=== PATIENT | female | born 1995 | race Caucasian/White ===

== ENCOUNTER 2021-09-11 09:37 | Emergency (ER) | payer OTHER, SELFPAY ==
[2021-09-11 10:07] VITALS: BP 125/85; PULSE 115; RESP 14; TEMP 37.2; O2SAT 97; BMI 45.1
[2021-09-11 10:23] LABS: UTC Strep Screen (Rapid) Negative (Negative)
[2021-09-11 10:24] LABS: UTC Pregnancy Test, Urine Negative (Negative)
--- NOTE | 2021-09-11 10:34 | HMH.EDUTC ---
[facility] [place] Disposition Clinical Impression: Oral thrush Otitis media Qualifiers: Otitis media type: unspecified Laterality: right Qualified Code(s): H66.91 - Otitis media, unspecified, right ear Sinusitis Qualifiers: Sinusitis location: unspecified location Chronicity: unspecified Qualified Code(s): J32.9 - Chronic sinusitis, unspecified Disposition: Home, Self-Care Condition on Discharge: Good Instructions: Sinusitis, DI for Sinusitis, Thrush-Adult, Middle Ear Infection Additional Instructions: *Monitor Temp, Over the counter Motrin or Tylenol as directed/as needed Tylenol every 4 hours and Motrin every 6 hours (as long as your family doctor has told you that you can take it) for fever or pain. and straight to ER if unable to lower temp less than 101.0 after medication given *Warm salt water gargles may help to soothe the throat *Throat Lozenges *Warm fluids like tea with honey may help to soothe the throat *Sleep elevated *Humidifier/Vaporizer Take medication as prescribed *Bromfed may cause drowsiness. Know how it effects you (your child) before driving, caring for small child, or sending your child to school. Not other antihistamines/allergy medications while taking bromfed Your throat swab was sent for culture. Those results are typically sent to your primary care. Be sure to follow up in 2-3 days with your family doctor/primary care physician if no improvement so they can review those result and treat if necessary. If you don?t have a primary care doctor, I recommend you get one but in the mean time, you will have to return to a walk in clinic Follow up IMMEDIATELY for new or worsening symptoms or no Noticeable improvement over the next 48-72 hours. 911 for difficulty breathing or swallowing Prescriptions: Amoxicillin/Potassium Clav [Augmentin 875-125 Tablet] 1 tab PO Q12H 10 Days #20 tab Transmission Status: Pending to [facility] Brompheniramine/Pseudoephed/Dm [Bromfed Dm Cough Syrup] 5 - 10 ml PO Q46H PRN #200 ml PRN Reason: Cough Transmission Status: Pending to [facility] predniSONE [Deltasone 10mg tablet] 10 mg PO BID 5 Days #10 tab Transmission Status: Pending to [facility] Nystatin [Nystatin Susp 500,000 Units/5mL Udc] 4 ml PO QID 10 Days #160 ml Transmission Status: Pending to [facility] Referrals: Emelia Taylor [Primary Care Provider] - As needed Forms: Work/School Release Medical Decision Making - Erik Inquiry Pt receiving controlled substance: No Erik was queried for this patient: No Vital Signs: 09/11/21 10:07 Temperature 99 F Temperature Source Oral Pulse Rate [Left] 115 H Respiratory Rate 14 Blood Pressure [Right Arm] 125/85 Blood Pressure Mean [Right Arm] 98 02 Sat by Pulse Oximetry 97 - Lab Data Lab results reviewed: Yes: I reviewed the patient's lab results. Lab Results 09/11/21 10:11: Strep Scn Rapid Clinic Negative 09/11/21 10:11: Tst Clinic Negative Orders (Tests/Meds): ORDERS Category Date Time Status Strep Screen Confirmation Stat Micro 09/11/21 10:11 Received [facility] [place] HPI - General Stated complaint: cough, sore throat, congestion Time Seen by Provider: 09/11/21 10:34 Mode of Arrival: Ambulatory Source of Information: Patient Limitations: No Limitations Description of Symptoms (Recalled from Triage Doc. by RN): pt c/o of lymph nodes hurting on both sides of her neck, runny nose, body aches, sore throat and swishing sounds in ears. HEENT Symptoms (Recalled from RN notes): Yes (runny nose, sore throat, fluid in ears and swollen lymph nodes in neck) Resp Symptoms (Recalled from RN notes): No Skin Symptoms (Recalled from RN notes): No MS Symptoms (Recalled from RN notes): No Functional Status (Recalled from RN notes): body aches - History of Present Illness Provider Complaint: Patient states that she hasnt felt well for a couple of weeks and was tested for COVID a few days ago and it was negative
[2021-09-11 10:55] VITALS: BP 125/85; PULSE 115; RESP 14; TEMP 37.2
== END 2021-09-11 11:00 | disposition home or self-care (01) ==
PROVIDERS: Emergency Provider Nurse Practitioner; PCP Nurse Practitioner Family
DX: H66.91 Otitis media, unspecified, right ear (principal); B37.0 Candidal stomatitis; J32.9 Chronic sinusitis, unspecified
CPT/HCPCS: 81025; 87880; 99202; G0463

== ENCOUNTER → 2023-04-10 08:15 | Outpatient (CLI) | payer OTHER, SELFPAY ==
[2023-04-10 09:11] LABS: Hemoglobin A1C 4.8 % (4.0-6.0)
[2023-04-10 09:15] LABS: Basophils # 0.1 K/mm3 (0-0.2); Basophils % 0.6 % (0.1-2.0); Eosinophils # 0.1 K/mm3 (0.0-0.4); Eosinophils % 1.1 % (0.1-12.0); Hematocrit 51.5 % (37.0-47.0); Hemoglobin 16.5 g/dL (12.2-16.2); Lymphocytes # 1.8 K/mm3 (0.7-4.5); Lymphocytes % 22.6 % (10-50); Mean Corpuscular HGB Conc 32.1 g/dL (31.8-35.4); Mean Corpuscular Hemoglobin 28.4 pg (27.0-31.2); Mean Corpuscular Volume 88.6 fl (81-99); Monocytes # 0.4 K/mm3 (0.1-1.0); Monocytes % 4.3 % (1.7-9.3); Neutrophils # 5.8 K/mm3 (1.8-7.8); Neutrophils % 71.4 % (37.0-80.0); Platelet Count 272 K/mm3 (142-424); Red Blood Count 5.82 M/mm3 (4.20-5.40); Red Cell Distribution Width 14.4 % (11.5-17.5); White Blood Count 8.1 K/mm3 (4.8-10.8)
[2023-04-10 09:29] LABS: Alanine Aminotransferase 27 U/L (12-78); Albumin Level 4.4 g/dl (3.5-5.0); Albumin/Globulin Ratio 1.8 (1.1-1.8); Alkaline Phosphatase 66 U/L (38-126); Anion Gap 15.3 mEq/L (5-15); Aspartate Amino Transferase 33 U/L (14-36); Bilirubin,Total 0.6 mg/dl (0.2-1.3); Blood Urea Nitrogen 11 mg/dl (7-17); Calcium 8.6 mg/dl (8.4-10.2); Carbon Dioxide 26 mmol/L (22.0-30.0); Chloride 103 mmol/L (98-107); Chol/HDL Ratio 6.3 (1-3.5); Cholesterol 195 mg/dl (140-200); Estimated Glomerular Filt Rate 120 ml/min (>60); GFR (African American) 145 ML/MIN (>60); Globulin 2.4 g/dL (1.3-3.2); Glucose 79 mg/dl (74-100); HDL Cholesterol 31 mg/dl (40-60); Potassium 4.3 mmoL/L (3.5-5.1); Sodium 140 mmol/L (136-145); Total Protein,Serum 6.8 g/dl (6.3-8.2); Triglycerides 119 mg/dl (30-150); VLDL Cholesterol 24 mg/dL (0-40)
== END ==
PROVIDERS: PCP Family Medicine; Visit Provider Family Medicine
DX: E66.9 Obesity, unspecified (principal); Z68.41 Body mass index [BMI] 40.0-44.9, adult; Z79.899 Other long term (current) drug therapy
CPT/HCPCS: 36415; 80053; 80061; 83036; 84443; 85025

== ENCOUNTER 2025-03-05 13:58 | Outpatient (CLI) | payer OTHER, SELFPAY ==
[2025-03-05 17:28] LABS: Basophils % 0.4 % (0.1-2.0); Eosinophils # 0.1 Kmm3 (0.0-0.4); Eosinophils % 1.4 % (0.1-12.0); Hematocrit 46.4 % (37.0-47.0); Hemoglobin 15.4 g/dL (12.2-16.2); Lymphocytes # 2.4 K/mm3 (0.7-4.5); Mean Corpuscular HGB Conc 33.2 g/dL (31.8-35.4); Mean Corpuscular Hemoglobin 28.8 pg (27.0-31.2); Mean Corpuscular Volume 86.9 fl (81-99); Mean Platelet Volume 11.1 fl (7.4-10.4); Monocytes # 0.6 K/mm3 (0.1-1.0); Monocytes % 6.1 % (1.7-9.3); Neutrophils # 6.5 K/mm3 (1.8-7.8); Neutrophils % 66.5 % (37.0-80.0); Nucleated Red Blood Cells # 0 10^3/uL; Nucleated Red Blood Cells % 0 %; Platelet Count 207 K/mm3 (142-424); Red Blood Count 5.34 M/mm3 (4.20-5.40); Red Cell Distribution Width 13.2 % (11.5-17.5); Red Cell Distribution Width-SD 41.3 fL; White Blood Count 9.7 K/mm3 (4.8-10.8)
[2025-03-05 18:44] LABS: Triiodothryronine (T3) Uptake 28 % (23.5-40.5)
[2025-03-05 18:45] LABS: Free Thyroxine Index 2.5 ug/dL (5.93-13.13)
[2025-03-05 18:52] LABS: Hemoglobin A1C 4.9 % (4.0-6.0)
[2025-03-05 18:59] LABS: Thyroid Stimulating Hormone 1.28 uIU/mL (0.465-4.68)
[2025-03-05 19:10] LABS: Hepatitis C Ab Qual. W/ RFX NEGATIVE (Negative)
[2025-03-05 19:28] LABS: Chloride 107 mmol/L (98-107); Sodium 137 mmol/L (136-145)
[2025-03-05 19:30] LABS: Alanine Aminotransferase 20 U/L (12-78); Blood Urea Nitrogen 11 mg/dl (7-17); Estimated Glomerular Filt Rate 99 ml/min (>60); GFR (African American) 120 ML/MIN (>60)
[2025-03-05 19:31] LABS: Albumin/Globulin Ratio 1.4 (1.1-1.8); Alkaline Phosphatase 78 U/L (38-126); Aspartate Amino Transferase 27 U/L (14-36); Bilirubin,Total 0.3 mg/dl (0.2-1.3); Calcium 8.9 mg/dl (8.4-10.2); Carbon Dioxide 21 mmol/L (22.0-30.0); Globulin 2.9 g/dL (1.3-3.2); Glucose 110 mg/dl (74-100); Iron 70 ug/dL (37-170); Total Protein,Serum 6.9 g/dl (6.3-8.2)
[2025-03-05 19:40] LABS: Total Iron Binding Capacity 370 ug/dL (265-497)
[2025-03-05 20:07] LABS: Ferritin 28.5 ng/ml (6.24-137)
[2025-03-08 11:02] LABS: HIV Combo NEGATIVE (Negative)
== END 2025-03-05 23:59 | disposition home or self-care (01) ==
LOC: LAB.DROPOF 03-06 12:51
PROVIDERS: PCP Nurse Practitioner Family; Visit Provider Nurse Practitioner Family
DX: R42 Dizziness and giddiness (principal); Z11.59 Encounter for screening for other viral diseases
CPT/HCPCS: 80053; 82728; 83036; 83540; 83550; 84436; 84443; 84479; 85025; 86803; 87389

== ENCOUNTER 2025-03-19 15:11 | Outpatient (CLI) | payer OTHER, SELFPAY ==
[2025-03-19 17:11] LABS: Anion Gap 10.1 mEq/L (5-15); Blood Urea Nitrogen 14 mg/dl (7-17); Calcium 8.8 mg/dl (8.4-10.2); Carbon Dioxide 24 mmol/L (22.0-30.0); Chloride 107 mmol/L (98-107); Estimated Glomerular Filt Rate 99 ml/min (>60); GFR (African American) 120 ML/MIN (>60); Glucose 85 mg/dl (74-100); Magnesium 2.2 mg/dl (1.6-2.3); Potassium 4.1 mmoL/L (3.5-5.1); Sodium 137 mmol/L (136-145)
== END 2025-03-19 23:59 | disposition home or self-care (01) ==
LOC: LAB 15:12
PROVIDERS: PCP Family Medicine; Visit Provider Physician Assistant
DX: R42 Dizziness and giddiness (principal); R03.0 Elevated blood-pressure reading, without diagnosis of hypertension; R40.0 Somnolence; R06.83 Snoring; R53.83 Other fatigue
CPT/HCPCS: 36415; 80048; 83735; 93270

== ENCOUNTER 2025-04-03 08:52 | Outpatient (CLI) | payer OTHER, SELFPAY ==
--- NOTE | 2025-04-03 08:55 | CA_ITS ---
APPROVED REPORT EXAM: Comprehensive 2D, Doppler, and color-flow Echocardiogram Senior Web Engineer: Fern Osorio RDCS Ht: 5 ft 7 in Wt: 277lbs BSA: 2.32 BP: 150/93 mmHg Indications: CP,SMOKER,EDEMA,FATIGUE M-Mode Dimensions RVDd 2.70 cm (0.9-2.6) LA Diam 2.54 cm (1.9-4.0) LVDd 5.23 cm (3.5-5.7) LVDs 3.66 cm (3.5-5.7) IVSd 0.44 cm (0.6-1.1) PWd 0.68 cm (0.6-1.1) EF (Teich) 56.90% FS 30.00% EDV (Teich) 131.20 mL TAPSE 1.90 (<1.7) ESV (Teich) 56.60 mL LV Diastology E Decel Time 233 (160-240 msec) E/A Ratio 1.5 Mitral Valve MV E Max Brett. 77.0 (40-130 cm/s) MV A Velocity 50.0 (40-130 cm/s) E/A Ratio 1.53 MV PHT 68.0 ms Left Ventricle The left ventricle is normal size. The left ventricular systolic function is normal. The left ventricular ejection fraction is within the normal range. There is normal left ventricular wall thickness. There is normal LV segmental wall motion. The left ventricular diastolic function is normal. LVEF is 60%. Right Ventricle The right ventricle is normal size. The right ventricular systolic function is normal. Atria The left atrium size is normal. The right atrium size is normal. There is no Doppler evidence of interatrial shunt. Aortic Valve The aortic valve opens well. There is no aortic valvular stenosis. No aortic regurgitation is present. Mitral Valve The mitral valve is normal in structure. No evidence of mitral valve stenosis. There is no mitral valve regurgitation noted. Tricuspid Valve Tricuspid valve is grossly normal in structure and function. Trace tricuspid regurgitation. There is insufficient TR jet to estimate RVSP. Pulmonic Valve The pulmonary valve is normal in structure. Trace pulmonic regurgitation. Great Vessels The aortic root is normal in size. IVC is normal in size and collapses >50% with inspiration. Pericardium There is no pericardial effusion. Other Information Study Quality: Adequate Conclusion Normal biventricular systolic function. No significant valvular stenosis or regurgitation. Electronically signed by : Margo Escobar MD 04/09/2025 00:04:18
--- NOTE | 2025-04-03 10:00 | CA_ITS ---
APPROVED REPORT Exam: Exercise Treadmill Technologist: Priya Kulkarni Ht: 5 ft 7 in Wt: 277 lbs BSA: 2.32 m2 HR: 81 bpm BP: 139/90 mmHg Rhythm: NSR Stress Test Details Test: Exercise stress testing was performed using a Caesar protocol. HR Resting HR: 81 bpm Max Heart Rate (APMHR): 191 bpm Max HR Achieved: 169 bpm Target HR (85% APMHR): 162 bpm % of APMHR: 88 Recovery HR: 97 bpm HR response to stress: Normal HR response to stress BP Resting BP: 139.0/90.0 mmHg Max BP: 193.0/110.0 mmHg Recovery BP: 160.0/110.0 mmHg BP response to stress: Normal blood pressure response to stress. ECG Resting ECG: NSR, baseline ST changes are noted with presence of early repolarization. Stress EC.[address] depression Clinical Exercise duration: 4.26 min Exercise capacity: 7.1 METs Stress ECG Conclusion Patient advised to take blood pressure mredication. Symptoms: Fatigue, dyspnea Arrhythmias/Ectopy: ST-T Changes: Baseline ECG abnormalities are noted due to early repolarization. 0.[address] depression at peak stress. Conclusion: Average exercise capacity. Baseline ECG abnormalities. No evidence of ischemia at peak stress, however overall this is non-diagnostic ECG peak stress testing in the setting of baseline abnormalities. Alternative testing modality is suggested if clinically indicated are suggested, such as CCTA or pharmacologic nuclear stress testing. Electronically signed by : Margo Escobar MD 04/04/2025 13:23:28
== END 2025-04-03 23:59 | disposition home or self-care (01) ==
LOC: RT 08:52
PROVIDERS: PCP Family Medicine; Visit Provider Physician Assistant
DX: R03.0 Elevated blood-pressure reading, without diagnosis of hypertension (principal); R07.9 Chest pain, unspecified; R42 Dizziness and giddiness; R40.0 Somnolence; R53.83 Other fatigue; R06.83 Snoring; R60.9 Edema, unspecified; F17.200 Nicotine dependence, unspecified, uncomplicated
CPT/HCPCS: 93017; 93018; 93306